=== PATIENT | female | born 1975 | race Caucasian/White ===

== ENCOUNTER 2021-03-16 10:30 | Outpatient (CLI) | payer OTHER, SELFPAY ==
--- NOTE | ~2021-03-16 | US_ITS ---
EXAMINATION: US pelvic complete EXAM DATE: 03/16/2021 10:50 INDICATION: LLQ pain . Right-sided oophorectomy. TECHNIQUE: Pelvic transabdominal sonogram was performed. There are multiple grayscale and Doppler im ages available for interpretation. Comparison is made to prior examination from 05/29/2018. FINDINGS: Uterus measures 8.6 x 4.6 x 5.7 cm, and is morphologically normal. Endometrial stripe sal sures 5 mm, within normal limits. There is no free pelvic fluid. Right adnexa: The ovary is not identified. There is no adnexal mass. Left adnexa: The ovary measures 5.8 x 4.6 x 6.1 cm, small complex cystic right ovarian mass like jefe on, could be a hemorrhagic cyst but follow-up ultrasound in 6-12 weeks recommended. Ovarian vascular flow confirmed. IMPRESSION: Left ovarian small complex cystic masslike region; consider 6-12 week follow-up. Reviewed, dictated and finalized at location A. T [facility] [address] APPRAISER IMPRESSION: Left ovarian small complex cystic masslike region; consider 6-12 we ek follow-up.
== END 2021-03-16 10:31 ==
PROVIDERS: Visit Provider Obstetrics & Gynecology Gynecology
DX: R10.32 Left lower quadrant pain (principal); N83.202 Unspecified ovarian cyst, left side
CPT/HCPCS: 76856

== ENCOUNTER 2021-04-27 10:41 | Outpatient (CLI) | payer OTHER, SELFPAY ==
--- NOTE | ~2021-04-27 | US_ITS ---
EXAMINATION: US pelvic complete DATE: 04/27/2021 10:57 INDICATION: Left lower quadrant mass Comparison:Ultrasound dated 03/16/2021 TECHNIQUE: Multiple transabdominal and endovaginal sonographic images of the pelvis performed. FINDINGS: The uterus measures 8.7 x 4.4 x 5.9 cm. The endometrial complex measures 1 cm. The right ovary is surgically absent. Left ovary measures 5.1 x 4 x 4.9 cm. There are follicular arenas ges. There is no free fluid in the pelvis. There are no abnormal masses seen on either side. IMPRESSION: 1. Unremarkable pelvic ultrasound. Reviewed, dictated and finalized at location B. N FARMER
== END 2021-04-27 10:42 ==
LOC: MICIMG 10:41
PROVIDERS: Visit Provider Obstetrics & Gynecology Gynecology
DX: R19.04 Left lower quadrant abdominal swelling, mass and lump (principal)
CPT/HCPCS: 76856

== ENCOUNTER 2021-10-04 11:26 | Outpatient (CLI) | payer OTHER, SELFPAY ==
--- NOTE | ~2021-10-04 | US_ITS ---
EXAMINATION: US pelvic complete w TV DATE: 10/04/2021 11:54 INDICATION: Left pelvic pain Comparison:Ultrasound 04/27/2021 TECHNIQUE: Multiple transabdominal and endovaginal sonographic images of the pelvis performed. FINDINGS: The uterus measures 8.2 x 4.3 x 5.2 cm. There is a nabothian cyst. The endometrial complex measures 4 mm. The right ovary is not visualized. The left ovary measures 4.5 x 3.2 x 3.7 cm with normal heterogeneo us echotexture. Normal vascularity in the left ovary. There is no free fluid in the pelvis. There are no abnormal masses seen on either side. IMPRESSION: 1. Unremarkable pelvic ultrasound. Reviewed, dictated and finalized at location A.
== END 2021-10-04 11:27 ==
PROVIDERS: PCP Internal Medicine; Visit Provider Nurse Practitioner
DX: N85.8 Other specified noninflammatory disorders of uterus (principal)
CPT/HCPCS: 76830; 76856